=== PATIENT | male | born 1960 | race Caucasian/White ===

== ENCOUNTER 2017-12-03 20:17 | Emergency (ER) | payer OTHER ==
[~2017-12-03 20:17] MED LIST: Iopamidol 370 76% 100 ML VIAL ONE
[2017-12-03 21:01] LABS: #Basophils 0.1 thou/uL (0.0-0.2); #Eosinphils 0.1 thou/uL (0.0-0.7); #Lymphocytes 3.1 thou/uL (1.20-3.40); #Neutrophils 9.6 thou/uL (1.40-6.50); %Basophils 0.9 % (0.0-1.0); %Lymphocytes 22.4 % (21.0-51.0); %Monocytes 7.1 % (0.0-10.0); %Neutrophils 68.7 % (42.0-75.0); Mean Corpuscular HGB CONC 31.6 g/dL (32.0-36.0); Mean Corpuscular Volume 88.6 fL (78.0-98.0); Mean Platelet Volume 9.9 fL (7.4-10.4); Platelet Count 214 thou/uL (130-400); RBC Distribution Width 12.6 % (11.5-14.5); Red Blood Cell (RBC) Count 5.37 mill/uL (4.70-6.10)
[2017-12-03 21:16] LABS: ALT (SGPT) 48 U/L (8-55); AST (SGOT) 33 U/L (5-34); Albumin 4.3 g/dL (3.5-5.0); Alkaline Phosphatase 122 U/L (40-150); Anion Gap 16 mmol/L (10-20); BUN (Urea Nitrogen) 15 mg/dL (8.4-25.7); Bilirubin, Total 0.5 mg/dL (0.2-1.2); Calc. Creatinine Clearance 0 mL/min (70-130); Calcium 9.6 mg/dL (7.8-10.44); Carbon Dioxide 22 mmol/L (22-29); Chloride 106 mmol/L (98-107); Estimated GFR-MDRD 73; Globulin 2.6 g/dL (2.4-3.5); Glucose 103 mg/dL (70-105); Potassium 3.7 mmol/L (3.5-5.1); Protein, Total 6.9 g/dL (6.0-8.3); Sodium 140 mmol/L (136-145)
[2017-12-03 21:18] LABS: CKMB 2.3 ng/mL (0-6.6); Troponin I Less than 0.010 ng/mL (< 0.028)
[2017-12-03] MEDS ORDERED: Ondansetron HCl/PF 4 MG/2 ML Vial ONE (21:27)
--- NOTE | 2017-12-03 21:42 | RAD ---
PORTABLE AP CHEST X-RAY 12/03/17 HISTORY: Chest pain, epigastric pain which started this morning. COMPARISON: None available. FINDINGS: There is mild increased density at the left lung base which is thought to be related to overlying sof t tissue density although given the overlying soft tissue density, left pleural effusion, atelectasis or infiltrate cannot be excluded. The lungs are otherwise clear. The cardiac silhouette and pulmonar y vasculature are within normal limits. IMPRESSION: Suboptimal evaluation of the lateral left lung base due to overlying soft tissue density. There is ot herwise no acute cardiopulmonary process. POS: [facility]
--- NOTE | 2017-12-03 22:49 | RAD ---
PA AND LATERAL CHEST X-RAY 12/03/17 HISTORY: Chest pain. COMPARISON: 12/03/17 at 2058 hours. FINDINGS: The cardiac silhouette and pulmonary vasculature are within normal limits. The lungs are clear. Left lung base is better evaluated on this exam and no consolidation or pleural fluid is present. No other interval change. IMPRESSION: No acute cardiopulmonary process. POS: [facility]
--- NOTE | 2017-12-04 00:26 | CT ---
CT ANGIOGRAM THORAX WITH IV CONTRAST AND 3D RECONSTRUCTIONS CT ANGIOGRAM ABDOMEN WITH IV CONTRAST AND 3D RECONSTRUCTIONS 12/03/17 HISTORY: Chest pain. FINDINGS: The thoracic and abdominal aorta are normal in caliber without evidence of an aortic dissection. Ther e is mild calcified atherosclerotic plaque seen within the infrarenal abdominal aorta. The bilateral iliac arteries as well as visualized bilateral common femoral arteries are patent. There is as normal arrangement of the great vessels at the aortic arch. The celiac and superior mesenteric arteries are patent. There is mild narrowing of a single right renal artery. The single left renal artery is patent. The i nferior mesenteric artery is patent. There is dependent atelectasis within the lungs bilaterally. The lungs are otherwise clear. This exam is obtained in expiratory phase of imaging. No pulmonary nodule, mass or pleural effusion is identif ied. Mediastinal structures have a normal CT appearance. The liver, spleen, bilateral adrenal glands, and left kidney demonstrate a normal CT appearance for a rterial phase of imaging. There is a tiny subcentimeter too small to characterize hypodense lesion in the mid portion right kid sudarshan. There is mild inflammatory changes seen adjacent to the head of the pancreas as well as adjacent to t he second portion of the duodenum. The findings could be related to mild focal pancreatitis. While du odenitis is a differential consideration, there is no thickening of the hurst of the duodenum. Loops of small bowel within the abdomen are normal in caliber. The urinary bladder is visualized and demonstrates a normal CT appearance. Imaging was obtained to th e level of the pubic symphysis. IMPRESSION: 1. Mild inflammatory stranding adjacent to the pancreatic head. Findings may be related to pancr eatitis. Correlation with laboratory values is recommended. 2. Thoracic and abdominal aorta are normal in caliber without evidence of an aortic dissection. POS: [facility]
== END 2017-12-04 00:55 | disposition short-term general hospital (02) ==
LOC: NAV ERS 20:17
DX: K85.90 Acute pancreatitis without necrosis or infection, unspecified (principal); R07.89 Other chest pain; E78.5 Hyperlipidemia, unspecified; I10 Essential (primary) hypertension; F17.220 Nicotine dependence, chewing tobacco, uncomplicated; Z79.899 Other long term (current) drug therapy
CPT/HCPCS: 71045; 71046; 71275; 80053; 82553; 83690; 84484; 85025; 93005; 96374; 96375; 96376; J2270; J2405

== ENCOUNTER 2022-04-15 14:23 | Emergency (ER) | payer OTHER ==
[2022-04-15] MEDS ORDERED: HYDROcodone/Acetaminophen 10/325 mg Tablet ONE (14:51)
[2022-04-15] MEDS ORDERED: Lidocaine 1% (PF) 30 ML VIAL ONE (15:17)
== END 2022-04-15 16:05 | disposition home or self-care (01) ==
LOC: NAV ERS 14:23
DX: S80.851A Superficial foreign body, right lower leg, initial encounter (principal); I10 Essential (primary) hypertension; E78.5 Hyperlipidemia, unspecified; W26.8XXA Contact with other sharp object(s), not elsewhere classified, initial encounter
CPT/HCPCS: J2001